=== PATIENT | female | born 1950 | race Two or more races ===

== ENCOUNTER 2020-12-17 07:30 | Inpatient (IN) | payer OTHER ==
[~2020-12-17] VITALS: Ht 160 cm; Wt 93.9 kg
[2020-12-17] MEDS ORDERED: SYNTHROID75 MCG PO (09:32)
[2020-12-17] MEDS ORDERED: GLIPIZIDE XL10 MG PO (09:32)
[2020-12-17] MEDS ORDERED: SIMVAST (09:33)
[2020-12-17] MEDS ORDERED: ASPIRI PO (09:33)
[2020-12-17] MEDS ORDERED: NOVOLIN 70100 UNIT/1 (09:34)
[2020-12-24] MEDS ORDERED: DIGOXIN125 MCG (10:08)
[2020-12-24] MEDS ORDERED: ALENDRONATE SOD70 MG (10:08)
[2020-12-24] MEDS ORDERED: ATORVASTATIN CA40 MG (10:08)
[2020-12-24] MEDS ORDERED: ENALAPRIL MALEA10 MG (10:09)
[2020-12-24] MEDS ORDERED: LEVOTHYROXINE100 MCG (10:09)
[2020-12-24] MEDS ORDERED: METFORMIN HCL1000 M3 (10:09)
[2020-12-24] MEDS ORDERED: GABAPENTIN300 M2 (10:09)
[2020-12-24] MEDS ORDERED: GLIPIZIDE ER2.5 MG (10:09)
[2020-12-24] MEDS ORDERED: SIMVASTATIN5 MG (10:10)
[2020-12-24] MEDS ORDERED: ECOTRIN81 MG (10:10)
[2020-12-26] MEDS ORDERED: BACTRIM DS TAB1 EACH PO (07:49)
[2020-12-26] MEDS ORDERED: XARELTO10 MG PO (07:49)
[2020-12-26] MEDS ORDERED: OXYC1TAB9 PO (07:49)
[2020-12-26] MEDS ORDERED: INTEGRA PLUS C1 EACH PO (07:49)
== END 2020-12-26 14:51 | DRG 470 ==
LOC: SURG 12-24 07:18 → O/R 12-24 07:18 → SURH 12-24 07:30 → SURG 12-24 16:55
PROVIDERS: ADMIT Orthopaedic Surgery Sports Medicine; ATTEND Orthopaedic Surgery Sports Medicine
PROC: 0SRD0J9 Replacement of Left Knee Joint with Synthetic Substitute, Cemented, Open Approach (ICD-10-PCS; principal; 2020-12-24 08:30)
DX: M17.12 Unilateral primary osteoarthritis, left knee (principal); I10 Essential (primary) hypertension; E11.9 Type 2 diabetes mellitus without complications; Z79.4 Long term (current) use of insulin; Z20.822 Contact with and (suspected) exposure to COVID-19